=== PATIENT | male | born 1990 | race Caucasian/White ===

== ENCOUNTER 2019-10-28 22:19 | Emergency (ER) | payer SELFPAY ==
[~2019-10-28] VITALS: Ht 180.3 cm; Wt 113.4 kg
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
--- NOTE | 2019-10-28 22:45 | NUR ---
DR RODRIGUEZ AT BEDSIDE
[2019-10-28] MEDS ORDERED: LIDOCAINE HCL/MPF 1% 30 ML VIAL IJ ONE (23:38)
[2019-10-29] MEDS ORDERED: AMOX/CLAVULANATE 875 MG TABLET PO ONE (00:30)
[2019-10-29] MEDS ORDERED: AMOX/CLAVULANATE 875 MG TABLET ONE (00:59)
--- NOTE | 2019-10-29 02:05 | NUR ---
PT ASSISTED TO THE RESTROOM.
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
--- NOTE | 2019-10-29 06:58 | NUR ---
PT SLEEPING COMFORTABLY IN BED. VSS. NO ACUTE DISTRESS NOTED. SITTER AT BEDSIDE FOR SAFETY
[2019-10-29 08:24] VITALS: BP 145/81
--- NOTE | 2019-10-29 08:24 | NUR ---
Patient given written and verbal discharge instructions. Patient verbalizes understanding of instructions. Patient is ambulatory with steady gait. Refuses offer of care home placement. Patient given list of available shelters in surrounding area. patient refused to sign homeless checklist and dc paper.
== END 2019-10-29 08:24 | disposition home or self-care (01) ==
LOC: ER 22:23
DX: S02.31XA Fracture of orbital floor, right side, initial encounter for closed fracture (principal); S01.111A Laceration without foreign body of right eyelid and periocular area, initial encounter; S80.211A Abrasion, right knee, initial encounter; S09.8XXA Other specified injuries of head, initial encounter; F10.129 Alcohol abuse with intoxication, unspecified; Y90.9 Presence of alcohol in blood, level not specified; Y08.89XA Assault by other specified means, initial encounter; Y93.89 Activity, other specified; Y92.89 Other specified places as the place of occurrence of the external cause; Y99.8 Other external cause status
CPT/HCPCS: 70450; 70486; 72125; 99285; J3490